=== PATIENT | female | born 1990 | race Caucasian/White ===

== ENCOUNTER 2018-10-09 20:32 | Emergency (ER) | payer OTHER ==
[~2018-10-09] VITALS: Ht 154.9 cm; Wt 65.0 kg
[2018-10-09 20:43] VITALS: BP 115/79; PULSE 96; TEMP 97.8
[2018-10-09 21:21] LABS: BASO # 0.1 (0.0-0.2); BASO % 0.7 % (0.0-2.0); EOS # 0.4 (0.0-0.7); EOS % 4.2 % (0-4.0); GRAN # 4.1 (1.4-6.5); GRAN % 49.6 % (42.2-75.2); HEMATOCRIT 40.6 % (37.0-47.0); HEMOGLOBIN 14.6 g/dl (12.5-16.0); LYMPH # 3.3 (1.2-3.4); LYMPH % 39.4 % (20.0-51.0); MEAN CELL VOLUME 90 fl (80.0-100.0); MEAN CORPUSCULAR HEMOGLOBIN 32 pg (27.0-31.0); MEAN CORPUSCULAR HGB CONC 36 g/dl (33.0-37.0); MEAN PLATELET VOLUME 10.9 fl (7.4-10.4); MONO # 0.5 (0.1-0.6); MONO % 5.9 % (1.7-9.3); PLATELET COUNT 191 K/mm3 (130-400); REDCELL DISTRIBUTION WIDTH-CV 11.6 % (11.5-14.5)
[2018-10-09] MEDS ORDERED: NOVOLOG 100U100 U/M1 SQ (21:29)
[2018-10-09] MEDS ORDERED: PROAIR HFA0.09 MG/AC IH (21:29)
[2018-10-09 21:36] LABS: ACETONE,SERUM NEGATIVE
[2018-10-09 21:42] LABS: ALANINE AMINOTRANSFERASE 17 U/L (9-52); ALBUMIN 4.1 gm/dL (3.5-5.0); ALKALINE PHOSPHATASE 99 U/L (50-136); ANION GAP 14 mmol/L (7-16); AST,SGOT 22 U/L (15-37); BLOOD UREA NITROGEN 18 mg/dL (7-17); CALCIUM 9.3 mg/dL (8.4-10.2); CARBON DIOXIDE 19 mmol/L (22-30); CHLORIDE 102 mmol/L (98-107); CREATININE, serum 0.74 (0.52-1.25); GLUCOSE 345 mg/dL (74-106); POTASSIUM 4.3 mmol/L (3.4-5.0); SODIUM 136 mmol/L (137-145); TOTAL PROTEIN 7.2 gm/dL (6.4-8.2)
[2018-10-09 21:46] LABS: C-REACTIVE PROTEIN 0.5 mg/dL (0.0-0.9)
== END 2018-10-09 22:39 | disposition home or self-care (01) ==
LOC: COL.ER 20:32
PROVIDERS: Emergency Medicine
DX: T85.614A Breakdown (mechanical) of insulin pump, initial encounter (principal); E10.9 Type 1 diabetes mellitus without complications
CPT/HCPCS: J1815; J7030

== ENCOUNTER 2019-03-28 06:08 | Inpatient (IN) | payer OTHER ==
[~2019-03-28] VITALS: Ht 154.9 cm; Wt 68.0 kg
[~2019-03-28 06:08] MED LIST: NOVOLOG 100U100 U/M1 SQ; PROAIR HFA0.09 MG/AC IH
[2019-03-28 06:47] LABS: BASO % 0.3 % (0.0-2.0); GRAN # 11.7 (1.4-6.5); GRAN % 86.5 % (42.2-75.2); HEMATOCRIT 47.3 % (37.0-47.0); HEMOGLOBIN 16.2 g/dl (12.5-16.0); LYMPH # 1.5 (1.2-3.4); LYMPH % 11.3 % (20.0-51.0); MEAN CELL VOLUME 94 fl (80.0-100.0); MEAN CORPUSCULAR HEMOGLOBIN 32 pg (27.0-31.0); MEAN CORPUSCULAR HGB CONC 34 g/dl (33.0-37.0); MEAN PLATELET VOLUME 10.7 fl (7.4-10.4); MONO # 0.2 (0.1-0.6); MONO % 1.6 % (1.7-9.3); PLATELET COUNT 233 K/mm3 (130-400); RED BLOOD COUNT 5.04 M/mm3 (4.10-5.30); REDCELL DISTRIBUTION WIDTH-CV 11.5 % (11.5-14.5)
[2019-03-28 06:57] LABS: ALBUMIN 4.8 gm/dL (3.5-5.0); BILIRUBIN,TOTAL 0.7 mg/dL (0.0-1.0); CALCIUM 9.6 mg/dL (8.4-10.2); CREATININE, serum 0.9 (0.52-1.25); POTASSIUM 5.1 mmol/L (3.4-5.0); TOTAL PROTEIN 8.6 gm/dL (6.4-8.2)
[2019-03-28 07:41] LABS: ARTERIAL BLD GAS O2 SATURATION 97.3 % (92-100); ARTERIAL BLD GAS TCO2 CT 8.1; ARTERIAL BLOOD GAS HCO3 7.3 meq/L (22-26); ARTERIAL BLOOD GAS PCO2 24.9 mmHg (35-45); ARTERIAL BLOOD GAS PO2 101.2 mmHg (80-100); ARTERIAL BLOOD GAS pH 7.09 (7.35-7.45)
[2019-03-28 08:28] LABS: COLLECTION METHOD CLEAN CATCH
[2019-03-28 08:37] LABS: PH 5 (5-8); SQUAMOUS EPITHELIAL 0-2 /hpf; URINE APPEARANCE Clear; URINE BACTERIA None Seen /hpf; URINE BILIRUBIN Negative (NEGATIVE); URINE BLOOD Negative (NEGATIVE); URINE COLOR Straw; URINE GLUCOSE 3+ (NEGATIVE); URINE KETONE 2+ (NEGATIVE); URINE LEUKOCYTE ESTERASE Negative (NEGATIVE); URINE NITRATE Negative (NEGATIVE); URINE PROTEIN(semi-quant) 1+ (NEGATIVE); URINE RBC 0-2 /hpf; URINE UROBILINOGEN Negative (NEGATIVE)
--- NOTE | 2019-03-28 08:52 | NUR ---
REPORT RECEIVED FROM JUDY IN ED.
[2019-03-28 09:00] VITALS: BP 118/76; PULSE 118; TEMP 99
[2019-03-28 09:03] VITALS: BP 118/76; PULSE 122; TEMP 99
[2019-03-28 09:41] VITALS: BP 118/70; PULSE 120
[2019-03-28 10:56] LABS: CALCIUM 7.5 mg/dL (8.4-10.2); CREATININE, serum 0.77 (0.52-1.25); POTASSIUM 4.5 mmol/L (3.4-5.0)
--- NOTE | 2019-03-28 11:01 | NUR ---
PT'S CAME BACK POSITIVE FOR INFLUENZA B POSITIVE. DR HIGGINS AWARE. PT PLACED IN DROPLET PRECAUTIONS.
[2019-03-28 12:00] VITALS: BP 105/75; PULSE 122; TEMP 98.7
--- NOTE | 2019-03-28 12:30 | NUR ---
1L BOLUS OF D51/2 W/ 20CKL COMPLETED AT 500ML/HR
[2019-03-28 13:00] LABS: CALCIUM 7.4 mg/dL (8.4-10.2); CREATININE, serum 0.66 (0.52-1.25); POTASSIUM 4.8 mmol/L (3.4-5.0)
[2019-03-28 15:09] LABS: CALCIUM 7.4 mg/dL (8.4-10.2); CREATININE, serum 0.6 (0.52-1.25); POTASSIUM 4.4 mmol/L (3.4-5.0)
[2019-03-28 16:00] VITALS: BP 101/69; PULSE 100; TEMP 98
[2019-03-28 17:20] LABS: CALCIUM 7.5 mg/dL (8.4-10.2); CREATININE, serum 0.58 (0.52-1.25); POTASSIUM 4.1 mmol/L (3.4-5.0)
--- NOTE | 2019-03-28 17:57 | NUR ---
UPDATED DR HIGGINS ON PATIENT'S STATUS INCLUDING MOST RECENT LAB WORK. PROVIDER STATES TO CONTINUE GTTS AT CURRENT RATES AND ONCE BS <200 TO SWITCH TO D5W AT 200/HR. PT OK TO HAVE CLEAR LIQUIDS AND TO UPDATE DR IGLESIAS WITH EVENING LABS TO SEE IF HE WANTS TO SWITCH PATIENT TO SQ INSULIN.
[2019-03-28 19:19] LABS: CALCIUM 7.5 mg/dL (8.4-10.2); CREATININE, serum 0.53 (0.52-1.25); POTASSIUM 3.9 mmol/L (3.4-5.0)
[2019-03-28 20:00] VITALS: BP 109/70; PULSE 96; TEMP 98.7
[2019-03-28 21:17] LABS: CALCIUM 7.8 mg/dL (8.4-10.2); CREATININE, serum 0.55 (0.52-1.25); POTASSIUM 3.6 mmol/L (3.4-5.0)
--- NOTE | 2019-03-28 22:00 | NUR ---
Decrease insulin gtt to 3 units/hr per Dr. Devine.
[2019-03-28 23:11] LABS: CALCIUM 7.7 mg/dL (8.4-10.2); CREATININE, serum 0.48 (0.52-1.25); POTASSIUM 3.5 mmol/L (3.4-5.0)
[2019-03-29] VITALS: BP 106/76; PULSE 86; TEMP 98.9
--- NOTE | 2019-03-29 01:20 | NUR ---
MARCELINO insulin gtt per Dr. Devine.
[2019-03-29 04:00] VITALS: BP 100/88; PULSE 84; TEMP 97.9
[2019-03-29 07:35] LABS: BASO % 0.3 % (0.0-2.0); EOS % 0.7 % (0-4.0); GRAN # 2.9 (1.4-6.5); LYMPH # 2.8 (1.2-3.4); LYMPH % 45.7 % (20.0-51.0); MEAN CELL VOLUME 91 fl (80.0-100.0); MEAN CORPUSCULAR HGB CONC 35 g/dl (33.0-37.0); MEAN PLATELET VOLUME 10.3 fl (7.4-10.4); MONO # 0.4 (0.1-0.6); MONO % 6.1 % (1.7-9.3); PLATELET COUNT 163 K/mm3 (130-400); RED BLOOD COUNT 4.07 M/mm3 (4.10-5.30); REDCELL DISTRIBUTION WIDTH-CV 11.5 % (11.5-14.5)
[2019-03-29 07:38] LABS: HEMATOCRIT 36.9 % (37.0-47.0); MEAN CORPUSCULAR HEMOGLOBIN 32 pg (27.0-31.0)
[2019-03-29 07:45] LABS: CALCIUM 7.8 mg/dL (8.4-10.2); CREATININE, serum 0.51 (0.52-1.25)
--- NOTE | 2019-03-29 09:48 | NUR ---
Care assumed at this time for MARLEN Zambrano.
[2019-03-29 09:49] VITALS: BP 107/77; PULSE 97; TEMP 98
--- NOTE | 2019-03-29 09:54 | NUR ---
Initial visit; Patient thanked Career Development Manager for looking in on her and offering God's blessings.
[2019-03-29 12:00] VITALS: BP 93/55; PULSE 80; TEMP 98.4
--- NOTE | 2019-03-29 13:08 | NUR ---
fabric worker supervisor met with patient to discuss discharge planning. Patient plans to return home upon discharge and confirms that she has [employer] primary and secondary. Patient states that she has coverage for her prescriptions through [employer] and uses [facility] pharmacy. Patient's primary care provider is Dr Lesa Jaramillo with [facility].
[2019-03-29 16:00] VITALS: BP 107/77; PULSE 93; TEMP 97.9
--- NOTE | 2019-03-29 19:05 | NUR ---
Bedside report received from MARLEN Villasenor
--- NOTE | 2019-03-29 19:45 | NUR ---
Patient awake and up in the recliner watching TV. Oriented x4. No complaints of pain. Vitals obtained and are WNL. Assessment reveals all findings WNL. Patient has changed her site for her insulin pump from LL to RL and insulin was replaced. Patient requested some ice to put her home insulin in. Provided. Patient has no other needs at this time. Will continue to monitor. Call light within reach.
[2019-03-29 20:00] VITALS: BP 115/82; PULSE 97; TEMP 98.6
[2019-03-30] VITALS: BP 113/79; PULSE 80; TEMP 98.9
--- NOTE | 2019-03-30 | NUR ---
Patient sleeping, but awakens easily to name. Vitals obtained and remain stable. Patient has no complaints of pain and currently has no needs. Will continue to monitor. Call light within reach.
[2019-03-30 04:00] VITALS: BP 114/84; PULSE 83; TEMP 98.8
--- NOTE | 2019-03-30 04:00 | NUR ---
Patient asleep but awakens to name. Vitals obtained and remain stable. Patient has no current needs at this time and no complaints of pain. Will continue to monitor Call light within reach.
--- NOTE | 2019-03-30 07:07 | NUR ---
bedside report given to MARLEN Clarke
--- NOTE | 2019-03-30 07:45 | NUR ---
Pt blood glucose noted to be low at 57, 4 oz of orange juice administered per hypoglycemia protocol, will recheck blood glucose for treatment effectiveness.
[2019-03-30 08:00] VITALS: BP 118/85; PULSE 81; TEMP 98.2
--- NOTE | 2019-03-30 08:00 | NUR ---
Shift assessment complete at this time. Plan of care reviewed at bedside with patient. Additional time taken to address any other needs or concerns. Vitals stable at this time. Pt denies pain or any other discomforts. Bed in low position, call light within reach, will continue to monitor.
[2019-03-30 09:47] LABS: BASO % 0.5 % (0.0-2.0); EOS # 0.1 (0.0-0.7); EOS % 1.2 % (0-4.0); GRAN # 1.5 (1.4-6.5); GRAN % 36.3 % (42.2-75.2); HEMOGLOBIN 13.2 g/dl (12.5-16.0); LYMPH # 2.2 (1.2-3.4); LYMPH % 54.1 % (20.0-51.0); MEAN CELL VOLUME 90 fl (80.0-100.0); MEAN CORPUSCULAR HEMOGLOBIN 32 pg (27.0-31.0); MEAN CORPUSCULAR HGB CONC 36 g/dl (33.0-37.0); MEAN PLATELET VOLUME 10.2 fl (7.4-10.4); MONO # 0.3 (0.1-0.6); MONO % 7.9 % (1.7-9.3); PLATELET COUNT 170 K/mm3 (130-400); RED BLOOD COUNT 4.09 M/mm3 (4.10-5.30); REDCELL DISTRIBUTION WIDTH-CV 11.6 % (11.5-14.5)
[2019-03-30 09:48] LABS: HEMATOCRIT 36.7 % (37.0-47.0)
[2019-03-30 09:57] LABS: CALCIUM 8.3 mg/dL (8.4-10.2); CREATININE, serum 0.5 (0.52-1.25); POTASSIUM 3.4 mmol/L (3.4-5.0)
== END 2019-03-30 11:35 | disposition home or self-care (01) | DRG 639 ==
LOC: COL.ER 06:08 → IMCU 07:10 → ICU 07:10 → IMCU 03-29 09:45
PROVIDERS: Emergency Medicine; Physician Assistant; Student in an Organized Health Care Education/Training Program; ADMIT Family Medicine
DX: E10.10 Type 1 diabetes mellitus with ketoacidosis without coma (principal); E10.649 Type 1 diabetes mellitus with hypoglycemia without coma; E87.6 Hypokalemia; J10.1 Influenza due to other identified influenza virus with other respiratory manifestations; E86.0 Dehydration; Z96.41 Presence of insulin pump (external) (internal); F17.210 Nicotine dependence, cigarettes, uncomplicated; Z88.0 Allergy status to penicillin
CPT/HCPCS: 99223-AI; 99232-AI; 99239; J1650; J1815; J2765; J3010; J3480; J7030; J7070

== ENCOUNTER → 2019-12-13 | Outpatient (CLI) | payer OTHER | LOC: ZCOL.LAB 16:55 | DX: Z20.828 Contact with and (suspected) exposure to other viral communicable diseases (principal) ==

== ENCOUNTER → 2020-07-01 | Outpatient (CLI) | payer OTHER ==
[~2020-07-01] MED LIST changes: +IBU600 MG PO; +UBRELVY50 MG PO; +ZOLOFT 25MG25 MG PO
== END ==
LOC: COL.RAD 07:42
DX: R68.81 Early satiety (principal)
CPT/HCPCS: A9541

== ENCOUNTER 2020-08-20 16:01 | Inpatient (IN) | payer OTHER ==
[~2020-08-20 16:01] MED LIST changes: -IBU600 MG PO; -UBRELVY50 MG PO; -ZOLOFT 25MG25 MG PO
[2020-08-27 12:15] VITALS: BP 116/94; PULSE 105; TEMP 98.5
[2020-08-27] MEDS ORDERED: ZOLOFT 25MG25 MG PO (12:25)
[2020-08-27] MEDS ORDERED: UBRELVY50 MG PO (12:25)
[2020-08-27 12:45] VITALS: BP 105/77; PULSE 81
[2020-08-27 13:00] VITALS: BP 108/80; PULSE 83
[2020-08-27 13:06] LABS: BASO # 0.1 (0.0-0.2); BASO % 1.1 % (0.0-2.0); EOS # 0.3 (0.0-0.7); EOS % 5.3 % (0-4.0); GRAN # 2.4 (1.4-6.5); GRAN % 43.8 % (42.2-75.2); HEMATOCRIT 39.6 % (37.0-47.0); LYMPH # 2.4 (1.2-3.4); LYMPH % 43.1 % (20.0-51.0); MEAN CELL VOLUME 89 fl (80.0-100.0); MEAN CORPUSCULAR HEMOGLOBIN 31 pg (27.0-31.0); MEAN CORPUSCULAR HGB CONC 35 g/dl (33.0-37.0); MEAN PLATELET VOLUME 11.1 fl (7.4-10.4); MONO # 0.4 (0.1-0.6); MONO % 6.5 % (1.7-9.3); PLATELET COUNT 226 K/mm3 (130-400); RED BLOOD COUNT 4.46 M/mm3 (4.10-5.30); REDCELL DISTRIBUTION WIDTH-CV 11.8 % (11.5-14.5)
[2020-08-27 13:17] LABS: BILIRUBIN,TOTAL 0.3 mg/dL (0.0-1.0); CALCIUM 9.4 mg/dL (8.4-10.2); CREATININE, serum 0.67 (0.52-1.25); POTASSIUM 3.9 mmol/L (3.4-5.0); TOTAL PROTEIN 7.2 gm/dL (6.4-8.2)
[2020-08-27 21:00] VITALS: BP 119/82; PULSE 82; TEMP 98.8
--- NOTE | 2020-08-27 21:00 | NUR ---
2100 ACCU CHECK 266. NOVALOG 8 UNIT AND LEVIMIR 10 UNITS GIVEN. TURKEY SANDWICH TAKEN. IV CONTS TO INFUSE PER IV PUMP. VOICES NO COMPAINTS.
[2020-08-28] VITALS (11 sets, daily range): BP systolic 107–123; BP diastolic 69–84; PULSE 83–113; TEMP 98.2–98.7
--- NOTE | 2020-08-28 01:00 | NUR ---
0100 ACCUCHECK 206. 8 UNITS NOVALOG SQ GIVEN.
--- NOTE | 2020-08-28 04:30 | NUR ---
0430 ACCUCHECK DONE 96. REMAINS NPO. C/O SL HEADACHE. ICE PACK GIVEN TO PUT ON NECK.
--- NOTE | 2020-08-28 08:43 | NUR ---
Surgery here. Patient escorted to surgery.
--- NOTE | 2020-08-28 10:03 | NUR ---
Initial visit; Patient thanked Community Outreach Advocate for looking in on her and offering God's blessings.
--- NOTE | 2020-08-28 18:30 | NUR ---
1830 UP TO BR WITH ASSIST AND BRIANA DCD. 300CC IN BAG. PERICARE DONE. RETURNED TO BED. ACCUCHECK DONE 160. 4 UNIT HUMALOG GIVEN. 1914 NAUSEATED. FEW BITES SUPPER TAKEN. ZOFRAN 4 MG IVP GIVEN WITH GOOD RESULTS.
--- NOTE | 2020-08-28 23:00 | NUR ---
2300 FEELING BETTER. HAVING SOME CRAMPING. SCHEDULED MOTRIN GIVEN.
[2020-08-29 01:00] VITALS: BP 11/69; BP 111/69; PULSE 100; TEMP 99.4
[2020-08-29 05:56] LABS: BASO % 0.4 % (0.0-2.0); EOS % 0.4 % (0-4.0); GRAN # 5.7 (1.4-6.5); GRAN % 62.5 % (42.2-75.2); HEMOGLOBIN 12.2 g/dl (12.5-16.0); LYMPH # 2.7 (1.2-3.4); LYMPH % 29.8 % (20.0-51.0); MEAN CELL VOLUME 92 fl (80.0-100.0); MEAN CORPUSCULAR HEMOGLOBIN 32 pg (27.0-31.0); MEAN CORPUSCULAR HGB CONC 35 g/dl (33.0-37.0); MEAN PLATELET VOLUME 10.5 fl (7.4-10.4); MONO # 0.6 (0.1-0.6); MONO % 6.7 % (1.7-9.3); PLATELET COUNT 190 K/mm3 (130-400); REDCELL DISTRIBUTION WIDTH-CV 11.9 % (11.5-14.5)
[2020-08-29 06:04] LABS: CALCIUM 8.3 mg/dL (8.4-10.2); CREATININE, serum 0.49 (0.52-1.25); POTASSIUM 3.4 mmol/L (3.4-5.0)
[2020-08-29 07:20] VITALS: BP 118/71; PULSE 98; TEMP 98.9
[2020-08-29] MEDS ORDERED: IBU600 MG PO (07:57)
[2020-08-29] MEDS ORDERED: NOVOLOG 100U100 U/M1 SQ (08:33)
--- NOTE | 2020-08-29 08:50 | NUR ---
Blood glucose checked per patient monitor per request. 219. See EMAR.
--- NOTE | 2020-08-29 09:34 | NUR ---
Patient given discharge instructions. Verbalizes understanding and follow up plan.
== END 2020-08-29 09:40 | disposition home or self-care (01) | DRG 743 ==
LOC: SURG 08-27 09:00 → OB 08-27 11:54
PROVIDERS: Hospitalist; ADMIT Obstetrics & Gynecology
PROC: 0UT9FZZ Resection of Uterus, Via Natural or Artificial Opening With Percutaneous Endoscopic Assistance (ICD-10-PCS; principal; 2020-08-28 09:00)
PROC: 0UT7FZZ Resection of Bilateral Fallopian Tubes, Via Natural or Artificial Opening With Percutaneous Endoscopic Assistance (ICD-10-PCS; 2020-08-28 09:00)
DX: N92.0 Excessive and frequent menstruation with regular cycle (principal); J45.909 Unspecified asthma, uncomplicated; G43.909 Migraine, unspecified, not intractable, without status migrainosus; F41.9 Anxiety disorder, unspecified; F32.9 Major depressive disorder, single episode, unspecified; E10.65 Type 1 diabetes mellitus with hyperglycemia; N94.5 Secondary dysmenorrhea; Z88.0 Allergy status to penicillin; Z88.8 Allergy status to other drugs, medicaments and biological substances
CPT/HCPCS: 99222; 99231-AI; 99232-AI; A4314; J1170; J1815; J2405; J2704; J3010; J7030; J7120

== ENCOUNTER 2021-02-23 19:30 | Emergency (ER) | payer OTHER, MEDICAID ==
[~2021-02-23] VITALS: Ht 154.9 cm; Wt 68.2 kg
[~2021-02-23 19:30] MED LIST changes: +IBU600 MG PO; +UBRELVY50 MG PO; +ZOLOFT 25MG25 MG PO
[2021-02-23 19:37] VITALS: TEMP 98.1
[2021-02-23 19:58] LABS: COLLECTION METHOD CLEAN CATCH
[2021-02-23 20:05] LABS: PH 6 (5-8); URINE APPEARANCE Clear (CLEAR/HAZY); URINE BACTERIA None Seen (NONE SEEN); URINE BILIRUBIN Negative (NEGATIVE); URINE BLOOD Negative (NEGATIVE); URINE COLOR Yellow (YELLOW); URINE GLUCOSE 2+ (NEGATIVE); URINE KETONE Negative (NEGATIVE); URINE LEUKOCYTE ESTERASE Negative (NEGATIVE); URINE NITRATE Negative (NEGATIVE); URINE PROTEIN(semi-quant) Negative (NEGATIVE)
[2021-02-23 20:30] LABS: BASO # 0.1 K/mm3 (0.0-0.2); BASO % 0.6 % (0.0-2.0); EOS # 0.3 K/mm3 (0.0-0.7); EOS % 3.2 % (0-4.0); GRAN # 4.3 K/mm3 (1.4-6.5); GRAN % 51.8 % (42.2-75.2); HEMATOCRIT 39.8 % (37.0-47.0); HEMOGLOBIN 14.4 g/dl (12.5-16.0); LYMPH # 3.2 K/mm3 (1.2-3.4); LYMPH % 38.5 % (20.0-51.0); MEAN CELL VOLUME 88 fl (80.0-100.0); MEAN CORPUSCULAR HEMOGLOBIN 32 pg (27.0-31.0); MEAN CORPUSCULAR HGB CONC 36 g/dl (33.0-37.0); MEAN PLATELET VOLUME 10.8 fl (7.4-10.4); MONO # 0.5 K/mm3 (0.1-0.6); MONO % 5.7 % (1.7-9.3); PLATELET COUNT 239 K/mm3 (130-400); RED BLOOD COUNT 4.54 M/mm3 (4.10-5.30); REDCELL DISTRIBUTION WIDTH-CV 11.4 % (11.5-14.5)
[2021-02-23 20:42] LABS: ALBUMIN 3.8 gm/dL (3.5-5.0); BILIRUBIN,TOTAL 0.5 mg/dL (0.2-1.2); C-REACTIVE PROTEIN 3.51 mg/dL (0.00-0.50); CREATININE, serum 0.83 mg/dL (0.57-1.11); POTASSIUM 3.9 mmol/L (3.5-4.5); TOTAL PROTEIN 6.9 gm/dL (6.2-8.1)
[2021-02-23] MEDS ORDERED: CEFTIN 250250 MG/TAB PO (23:29)
[2021-02-23] MEDS ORDERED: ZOFRAN ODT4 MG PO (23:30)
[2021-02-24 00:03] VITALS: BP 115/84; PULSE 93
== END 2021-02-24 00:03 | disposition home or self-care (01) ==
LOC: COL.ER 19:30
PROVIDERS: Emergency Medicine; Nurse Practitioner
DX: N39.0 Urinary tract infection, site not specified (principal); J45.909 Unspecified asthma, uncomplicated; E10.10 Type 1 diabetes mellitus with ketoacidosis without coma; F17.210 Nicotine dependence, cigarettes, uncomplicated; Z88.0 Allergy status to penicillin; Z79.899 Other long term (current) drug therapy
CPT/HCPCS: J0696; J1885; J2270; J2405; J7030; Q9967

== ENCOUNTER → 2022-12-02 | Outpatient (CLI) | payer OTHER, MEDICAID ==
[~2022-12-02] MED LIST changes: +CEFTIN 250250 MG/TAB PO; +TAMIFLU 75MG75 MG PO; +ZOFRAN ODT4 MG PO
== END ==
LOC: COL.RAD 10:34
DX: R10.13 Epigastric pain (principal); R11.0 Nausea
CPT/HCPCS: Q9967